=== PATIENT | female | born 1980 | race Caucasian/White ===

== ENCOUNTER → 2018-04-21 | Outpatient (CLI) | payer OTHER ==
[~2018-04-21] VITALS: Ht 170.2 cm; Wt 79.0 kg
[~2018-04-21] MED LIST: BUPIVACAINE/PF 0.5% ONE; EPINEPHRINE 1 MG/ML, 1ML ONE; LACTATED RINGERS 1,000 ML IV SCH; NO CURRENT MEDS; PLEASE ENTER HEIGHT AND WEIGHT MC SCH; THROMBIN 5,000 UNIT VIAL TP ONE
[2018-04-21 12:00] VITALS: BP 116/78
[2018-04-21 13:37] LABS: HCG UR SG 1.034 (1.003-1.030)
== END ==
LOC: OUT 11:37 → EDSTATUS 13:30
PROVIDERS: ATTEND Surgery
DX: K64.1 Second degree hemorrhoids (principal); Z53.9 Procedure and treatment not carried out, unspecified reason; K64.4 Residual hemorrhoidal skin tags; Z88.0 Allergy status to penicillin; F17.210 Nicotine dependence, cigarettes, uncomplicated
CPT/HCPCS: 81025; J7120; J0171; J3490